=== PATIENT | female | born 1945 | race Caucasian/White ===

== ENCOUNTER → 2020-04-24 | Outpatient (CLI) | payer MEDICARE, BC ==
--- NOTE | 2020-04-24 09:51 | P.GSHP ---
History of Present Illness H&P Date: 04/24/20 Chief Complaint: abnormal left breast mammogram Patti is a 75 year old white female seen in consultation for Dr. Alondra Restrepo regarding a mammographic abnormality of her left breast at 3:00. She does not feel anything in her breast. No nipple discharge or skin changes. No pain in her breast. Her last mammogram prior to this was two years prior. The most recent mammogram was on 03-24-2020, with additional views on 04-17-2020. The patient's mammogram revealed loosely grouped coarse heterogeneous calcifications in close proximity to coursing macrocalcification in the upper outer quadrant of the left breast middle depth. This most likely reflective of a calcifying fibroadenoma however additional imaging was requested. On the additional imaging she was noted to have developing course hemorrhoid Silverio calcifications in the outer 3 o'clock position of the left breast and his this area for which biopsy is recommended. Patient has had breast surgery in the past. She has no history of any recent trauma or infection in the breast. She did have mastitis after her pregnancies. Family history: Negative Hormonal history: Menarche: 11 1 miscarriage, breast feed no, first child born at 17 Menopause: late 50's BCP:< 1 year hormones: < 1 year Surgical history: 1. Varicose veins 2. Superficial nodule removed from scalp 3. two liver biopsies in past Medical History: 1. 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 cardiac palpitations takes Coumadin Social History: smoke: none alcohol: none drugs: none - Constitutional Constitutional: Denies chills, Denies fever - EENT Eyes: denies blurred vision, denies pain Ears, nose, mouth and throat: Denies headache, Denies sore throat - Breasts Breasts: bilateral: as per HPI - Cardiovascular Comment: palpitations Cardiovascular: Denies chest pain, Denies shortness of breath - Respiratory Respiratory: Denies cough, Denies 7 - Gastrointestinal Gastrointestinal: Denies abdominal pain, Denies diarrhea, Denies nausea, Denies vomiting - Genitourinary (Female) Genitourinary: Denies dysuria, Denies hematuria - Menstruation Menstruation: Reports postmenopausal - Musculoskeletal Musculoskeletal: Denies myalgias - Integumentary Integumentary: Denies pruritus, Denies rash - Neurological Neurological: Denies numbness, Denies weakness - Psychiatric Psychiatric: Denies anxiety, Denies depression - Endocrine Endocrine: Reports weight change, Denies fatigue - Hematologic/Lymphatic Comment: Patient takes Coumadin - Allergic/Immunologic Allergic/Immunologic: Reports as per HPI Medications and Allergies Home Medications Medication Instructions Recorded Confirmed Type Multivitamin [Multivitamins Adult 1 each PO DAILY 04/24/20 04/24/20 History Gummies] Ursodiol 300 mg PO DAILY 04/24/20 04/24/20 History Warfarin [Coumadin] 1 mg PO DAILY 04/24/20 04/24/20 History amLODIPine [Norvasc] 5 mg PO DAILY 04/24/20 04/24/20 History azaTHIOprine [Imuran] 50 mg PO DAILY 04/24/20 04/24/20 History Allergies Allergy/AdvReac Type Severity Reaction Status Date / Time Penicillins Allergy Rash/Hives Unverified 04/24/20 09:21 Sulfa (Sulfonamide Allergy Rash/Hives Unverified 04/24/20 09:21 Antibiotics) Surgical - Exam BMI 32.8 - General well developed, well nourished, no distress - Eyes normal ocular movement - ENT no hearing loss, no congestion - Neck no masses, trachea midline - Respiratory normal respiratory effort, clear to auscultation - Cardiovascular Rhythm: regular Heart Sounds: normal: S1, S2 - Abdomen Abdomen: soft, non tender, no guarding, no rigid, no rebound - Integumentary normal turgor - Neurologic no disoriented, no combative - Musculoskeletal normal gait, normal posture - Psychiatric oriented to time, oriented to person, oriented to place, speech is normal, memory intact breast exam: BRA: 42DD inspection: bilateral grade 2/3 ptosis palpation: right breast: Multi-positional exam fibrocystic changes, prominent inframammary ridge with no dominant masses or nodules of concern Right axilla: No adenopathy of concern Left breast: Multi-positional exam no dominant masses or nodules of concern, fibrocystic changes, particularly tension at the 3 o'clock position does not reveal any discrete dominant mass or nodule Left axilla: No adenopathy of concern Results Review of mammogram revealing calcifications in the left breast for which biopsy is recommended Assessment and Plan Assessment: Impression: 1. 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 cardiac palpitations takes Coumadin 3. Mammographic abnormality left breast Plan: 1. Patient is going to stop Coumadin as per cardiology and have PT/INR morning of stereotactic core biopsy 2. Stereotactic core biopsy left breast Risk and benefits of procedure discussed with the patient. These include but are not limited to bleeding, infection, reaction to the anesthetic. There is a possibility that the area targeted may not be adequately sampled. Alternatives such as open biopsy of watchful waiting not recommended. She understands risks and wishes to proceed. Cc: Dr. Alondra Restrepo encounter 45 minutes, > 50% of time in planning and counseling
[2020-04-24 10:45] VITALS: BP 120/77; PULSE 61; RESP 18; TEMP 98.1
== END | disposition home or self-care (01) ==
LOC: WWCWWP 09:07
PROVIDERS: ATTEND Surgery
DX: Z53.9 Procedure and treatment not carried out, unspecified reason (principal)

== ENCOUNTER → 2020-04-30 | Day surgery (SDC) | payer MEDICARE, BC ==
[2020-04-30 07:59] LABS: Prothrombin Time 10.7 sec (9.0-12.0)
--- NOTE | 2020-04-30 08:53 | P.PCN ---
Date of Procedure: 04/30/20 Preoperative Diagnosis: Mammographic abnormality left breast/calcifications of concern at 3 o'clock position Postoperative Diagnosis: Same Procedure(s) Performed: Left breast stereotactic core biopsy Anesthesia: local Surgeon: Nano Castro Estimated Blood Loss (ml): 0 Pathology: other (Breast tissue/concordant with mammographic abnormality) Condition: stable Disposition: same day Indications for Procedure: Developing coarse heterogeneous calcifications 3 o'clock position left breast Operative Findings: Microcalcifications noted in specimen Description of Procedure: The patient is a 75-year-old white female who on a mammogram was noted to have developing coarse heterogenic calcifications 3 o'clock position of the left breast. She was recommended to undergo a stereotactic core biopsy. Alternatives such as watchful waiting or open biopsy was not recommended. Risks and benefits of the procedure were discussed with the patient. The patient was taken to the stereotactic core biopsy wound. She was pos itioned prone on the stereotactic table. A inner tube tuber machine operator film was obtained. The area of concern was identified. The lesion was targeted. A lateral to medial approach was utilized. The breast was prepped using Betadine. 20 mL of 1% lidocaine were used to anesthetize the area of concern. A 9-gauge vacuum- assisted core rotating biopsy needle was driven to the correct coordinates. The needle was fired. Post film was obtained. The needle was noted to be in the correct location. A core biopsy samples were obtained from the 3 to 9 o'clock position obtaining 2 samples at 6:00. Radiograph the specimen revealed the area of concern had been sampled with calcifications in the specimen. A secure marked top. Clip was placed and noted to be in the correct location. The patient tolerated the procedure in stable condition. She will follow-up Dr. Funes next week. The specimen was sent to pathology. The specimen was felt to be concordant with radiographic findings.
[2020-04-30 09:06] VITALS: BP 136/84; PULSE 82; RESP 16; TEMP 97.7
--- NOTE | 2020-04-30 10:06 | MM ---
EXAMINATION TYPE: MG stereo VAD BX LT DATE OF EXAM: 04/30/2020 COMPARISON: Prior mammograms from outside institution 04/09/2018, 04/17/2020 CLINICAL HISTORY: Abnormal mammogram TECHNIQUE: Stereotactic guided core biopsy of left breast. FINDINGS: The procedure of stereotactic guided core biopsy was explained to the patient. Benefits, alternatives, and risks were discussed. An informed consent was then obtained. The shortness pathway for biopsy was chosen. Shortness pathway was lateral to medial approach. I performed the localization, then surgeon, Dr. Marin Mari performed the remainder of the procedure. A vacuum assisted biopsy gun was used to obtain multiple core samples. The patient tolerated the procedure well without any immediate complication. The patient was kept in the radiology department for short stay after the procedure and then discharged home in stable condition. Targeted calcifications are identified in specimen mammogram. Post biopsy mammogram shows the clip to appear in satisfactory position relative to the targeted area of concern on the preprocedure images. IMPRESSION: SUCCESSFUL, UNCOMPLICATED STEREOTACTIC GUIDED CORE BIOPSY OF AREA OF CONCERN IN THE BREAST, FULL PATHOLOGY RESULTS TO FOLLOW. Pathology Results: Benign LEFT BREAST LESION, NEEDLE CORE BIOPSY: Fibrocystic spectrum changes with fibroadenoma and prominent intraductal and parenchymal calcifications. Recommendation Follow up mammogram of the left breast in 6 months. ROBERTO
== END ==
LOC: RADMAMWWP 07:12
PROVIDERS: ATTEND Surgery
DX: D24.2 Benign neoplasm of left breast (principal); N60.12 Diffuse cystic mastopathy of left breast
CPT/HCPCS: 88305; 85610; 19081; 36415; A4648; J2001

== ENCOUNTER → 2021-03-31 | Outpatient (CLI) | payer MEDICARE, BC ==
--- NOTE | 2021-04-01 14:26 | MM ---
Reason for exam: additional evaluation requested from prior study. Last mammogram was performed 11 months ago. History: Patient is postmenopausal. Benign MG stereo VAD BX LT of the left breast, April 30, 2020. Physical Findings: Nurse did not find any significant physical abnormalities on exam. MG 3D Diag Mammo W/Cad GUNNAR Bilateral CC and MLO view(s) were taken. Prior study comparison: April 30, 2020, mammogram. April 09, 2018, mammogram. There are scattered fibroglandular densities. Previous mammotome biopsy in the left breast. These results were verbally communicated with the patient and result sheet given to the patient on 03/31/21. ASSESSMENT: Benign, BI-RAD 2 RECOMMENDATION: Routine screening mammogram of both breasts in 1 year.
== END | disposition home or self-care (01) ==
LOC: RADMAMWWP 09:18
PROVIDERS: ATTEND Surgery
DX: N64.89 Other specified disorders of breast (principal); Z78.0 Asymptomatic menopausal state
CPT/HCPCS: 77066; G0279; 77062

== ENCOUNTER → 2021-05-05 | Outpatient (CLI) | payer MEDICARE, BC ==
--- NOTE | 2021-05-05 14:15 | P.PN ---
Subjective Progress Note Date: 05/05/21 Principal diagnosis: fibrocystic breast disease Patti is a 76 year old white female seen on April [address] Alondra Restrepo regarding a mammographic abnormality of her left breast at 3:00. She did not feel anything in her breast. No nipple discharge or skin changes. No pain in her breast. The patient's mammogram revealed loosely grouped coarse heterogeneous calcifications in close proximity to coursing macrocalcification in the upper outer quadrant of the left breast middle depth. This most likely reflective of a calcifying fibroadenoma however additional imaging was requested. On the additional imaging she was noted to have developing calcifications in the outer 3 o'clock position of the left breast and his this area for which biopsy is recommended. She underwent a left breast stero biopsy on 04-20-20 which was benign. She now had a bilateral mammogram on 03-31-21 which was benign BIRAD 2. She is not complaining of any new lumps masses or nodules in her breast. She is not complaining of any nipple discharge or skin changes for which she is concerned. Patient has had breast surgery in the past. She has no history of any recent trauma or infection in the breast. She did have mastitis after her pregnancies. Family history: Negative Hormonal history: Menarche: 11 1 miscarriage, breast feed no, first child born at 17 Menopause: late 50's BCP:< 1 year hormones: < 1 year Surgical history: 1. Varicose veins 2. Superficial nodule removed from scalp 3. two liver biopsies in past Medical History: 1. 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 cardiac palpitations takes Coumadin Social History: smoke: none alcohol: none drugs: none - Constitutional Constitutional: Denies chills, Denies fever - EENT Eyes: denies blurred vision, denies pain Ears, nose, mouth and throat: Denies headache, Denies sore throat - Breasts Breasts: bilateral: as per HPI - Cardiovascular Comment: palpitations Cardiovascular: Denies chest pain, Denies shortness of breath - Respiratory Respiratory: Denies cough - Gastrointestinal Gastrointestinal: Denies abdominal pain, Denies diarrhea, Denies nausea, Denies vomiting - Genitourinary (Female) Genitourinary: Denies dysuria, Denies hematuria - Menstruation Menstruation: Reports postmenopausal - Musculoskeletal Musculoskeletal: Denies myalgias - Integumentary Integumentary: Denies pruritus, Denies rash - Neurological Neurological: Denies numbness, Denies weakness - Psychiatric Psychiatric: Denies anxiety, Denies depression - Endocrine Endocrine: Reports weight change, Denies fatigue - Hematologic/Lymphatic Comment: Patient takes Coumadin - Allergic/Immunologic Allergic/Immunologic: Reports as per HPI Objective - Exam BMI 31.8 - Constitutional General appearance: Present: average body habitus, cooperative - EENT Eyes: Present: EOMI ENT: Present: hearing grossly normal - Neck Neck: Present: normal ROM - Respiratory Respiratory: bilateral: CTA - Cardiovascular Rhythm: regular Heart sounds: normal: S1, S2 - Gastrointestinal General gastrointestinal: Present: soft - Integumentary Integumentary: Present: normal turgor - Musculoskeletal Musculoskeletal: Present: gait normal - Psychiatric Psychiatric: Present: A&O x's 3, appropriate affect, intact judgment & insight - Additional findings Additional findings: Breast exam: BRA: 40D inspection: bilateral grade 3 ptosis, bilateral chest wall telangiectasias non- worrisome palpation: Right breast: Multi-positional exam fibrocystic changes, no dominant masses or nodules of concern Right axilla: No adenopathy of concern Left breast: Multi-positional exam fibrocystic changes no dominant masses or nodules of concern Left axilla: No adenopathy of concern Assessment and Plan Assessment: Impression: 1. 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 cardiac palpitations takes Coumadin 3. Fibrocystic breast changes Plan: 1. Bilateral mammogram in 1 year with physician exam at that time CC: DR. Restrepo
[2021-05-05 14:19] VITALS: BP 165/83; PULSE 69; RESP 18; TEMP 97.6
== END | disposition home or self-care (01) ==
LOC: WWCWWP 13:44
PROVIDERS: ATTEND Surgery
DX: Z53.9 Procedure and treatment not carried out, unspecified reason (principal)

== ENCOUNTER → 2022-04-04 | Outpatient (CLI) | payer MEDICARE, BC ==
--- NOTE | 2022-04-05 09:29 | MM ---
Reason for Exam: Screening (asymptomatic). Last screening mammogram was performed 12 month(s) ago. Patient History: Menarche at age 11. First Full-Term at age 16. Postmenopausal. 04/30/2020, Benign Core Biopsy on the left side. Risk Values: Ritu 5 year model risk: 1.5%. NCI Lifetime model risk: 2.6%. Prior Study Comparison: 04/09/2018 Screening Mammogram, Unknown. 04/30/2020 Screening Mammogram, Unknown. 03/31/2021 Bilateral Diagnostic Mammogram, [facility]. Tissue Density: The breast tissue is heterogeneously dense. This may lower the sensitivity of mammography. Findings: Analyzed By CAD. There is no suspicious group of microcalcifications or new suspicious mass in either breast. Surgical clips noted on the left. There are benign appearing calcifications. There is a 6 mm nodule in the upper outer aspect of the left breast. Appears well-circumscribed. Overall Assessment: Incomplete: need additional imaging evaluation, BI-RAD 0 Management: Special View Mammogram of the left breast. A clinical breast exam by your physician is recommended on an annual basis and results should be correlated with mammographic findings. Electronically signed and approved by: Cleveland Cleaning M.D. Radiologis
== END | disposition home or self-care (01) ==
LOC: RADMAMWWP 09:16
PROVIDERS: ATTEND Surgery
DX: Z12.31 Encounter for screening mammogram for malignant neoplasm of breast (principal)
CPT/HCPCS: 77063; 77067

== ENCOUNTER → 2022-04-08 | Outpatient (CLI) | payer MEDICARE, BC ==
--- NOTE | 2022-04-08 09:05 | MM ---
Reason for Exam: Additional evaluation requested from abnormal screening. Last screening mammogram was performed less than 1 month ago. Patient History: Menarche at age 11. First Full-Term at age 16. Postmenopausal. 04/30/2020, Benign Core Biopsy on the left side. Risk Values: Ritu 5 year model risk: 1.5%. NCI Lifetime model risk: 2.6%. Prior Study Comparison: 04/30/2020 Screening Mammogram, Unknown. 03/31/2021 Bilateral Diagnostic Mammogram, [facility]. 04/04/2022 Bilateral MG 3D screening mammo w/cad, [facility]. Tissue Density: Left: The breast tissue is heterogeneously dense. This may lower the sensitivity of mammography. Findings: Analyzed By CAD. Mammogram Persistent nodule upper outer left breast 5 cm from the nipple, and measuring 5 mm in size. Ultrasound is recommended.. Technique: Method: Targeted. Findings: No solid or cystic nodule identified. Overall Assessment: Probably benign, BI-RAD 3 Assessment: MG 3D work up w/cad LT - Left: Incomplete: need additional imaging evaluation, BI-RAD 0. US breast workup limited LT - Left: Probably benign, BI-RAD 3. Management: Diagnostic Mammogram of the left breast in 6 months. A clinical breast exam by your physician is recommended on an annual basis and results should be correlated with mammographic findings. Results were given to the patient verbally at the time of exam. Electronically signed and approved by: Horacio Magana M.D. Radiologis
== END | disposition home or self-care (01) ==
LOC: RADMAMWWP 08:13
PROVIDERS: ATTEND Family Medicine
DX: R92.8 Other abnormal and inconclusive findings on diagnostic imaging of breast (principal)
CPT/HCPCS: 77065; 76642; G0279; 77061

== ENCOUNTER → 2022-04-08 | Outpatient (CLI) | payer MEDICARE, BC ==
[2022-04-08 09:53] VITALS: BP 139/80; PULSE 61; RESP 17; TEMP 97.8
--- NOTE | 2022-04-08 10:48 | P.PN ---
Subjective Progress Note Date: 04/08/22 Principal diagnosis: Fibrocystic breast changes fibrocystic breast disease Patti is a 76 year old white female seen on April [address] Alondra Restrepo regarding a mammographic abnormality of her left breast at 3:00. She did not feel anything in her breast. No nipple discharge or skin changes. No pain in her breast. The patient's mammogram revealed loosely grouped coarse heterogeneous calcifications in close proximity to coursing macrocalcification in the upper outer quadrant of the left breast middle depth. This most likely reflective of a calcifying fibroadenoma however additional imaging was requested. On the additional imaging she was noted to have developing calcifications in the outer 3 o'clock position of the left breast and his this area for which biopsy is recommended. She underwent a left breast stero biopsy on 04-20-20 which was benign. She now had a bilateral mammogram on 03-31-21 which was benign BIRAD 2. She is not complaining of any new lumps masses or nodules in her breast. She is not complaining of any nipple discharge or skin changes for which she is concerned. Patient has had breast surgery in the past. She has no history of any recent trauma or infection in the breast. She did have mastitis after her pregnancies. 04-08-22 At this time the patient is not complaining of any new lumps masses or nodules of concern in either breast. She has no nipple discharge or skin changes for which she is concerned about. She underwent a bilateral mammogram in which revealed a 6 mm nodule in the upper aspect of the left breast. Additional mammogram as well as ultrasound were performed of this area. These were performed and [id number]. On the mammogram there was a persistent nodule in the upper outer quadrant of the left breast measuring 5 mm in size. An ultrasound was performed of this area which did not reveal any solid or cystic lesions. Recommendation for repeat left breast mammogram in 6 months was made. Mammogram and ultrasound personally reviewed. Family history: Negative Hormonal history: Menarche: 11 1 miscarriage, breast feed no, first child born at 17 Menopause: late 50's BCP:< 1 year hormones: < 1 year Surgical history: 1. Varicose veins 2. Superficial nodule removed from scalp 3. two liver biopsies in past Medical History: 1. 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 a fib takes Coumadin Social History: smoke: none alcohol: none drugs: none - Constitutional Constitutional: Denies chills, Denies fever - EENT Eyes: denies blurred vision, denies pain Ears, nose, mouth and throat: Denies headache, Denies sore throat - Breasts Breasts: bilateral: as per HPI - Cardiovascular Comment: palpitations Cardiovascular: Denies chest pain, Denies shortness of breath - Respiratory Respiratory: Denies cough - Gastrointestinal Gastrointestinal: Denies abdominal pain, Denies diarrhea, Denies nausea, Denies vomiting - Genitourinary (Female) Genitourinary: Denies dysuria, Denies hematuria - Menstruation Menstruation: Reports postmenopausal - Musculoskeletal Musculoskeletal: Denies myalgias - Integumentary Integumentary: Denies pruritus, Denies rash - Neurological Neurological: Denies numbness, Denies weakness - Psychiatric Psychiatric: Denies anxiety, Denies depression - Endocrine Endocrine: Reports weight change, Denies fatigue - Hematologic/Lymphatic Comment: Patient takes Coumadin - Allergic/Immunologic Allergic/Immunologic: Reports as per HPI 04-08-22 Objective - Vital Signs Vital signs: Vital Signs Temp 97.8 F 04/08/22 09:51 Pulse 61 04/08/22 09:51 Resp 17 04/08/22 09:51 BP 139/80 04/08/22 09:51 Pulse Ox 95 04/08/22 09:51 FiO2 Intake & Output 04/07/22 04/08/22 04/08/22 18:59 06:59 18:59 Weight 83.915 kg - Exam BMI: 30.8 - Constitutional General appearance: Present: cooperative - EENT Eyes: Present: EOMI ENT: Present: hearing grossly normal - Neck Neck: Present: normal ROM - Respiratory Respiratory: bilateral: CTA - Cardiovascular Rhythm: regular Heart sounds: normal: S1, S2 - Gastrointestinal General gastrointestinal: Present: soft - Integumentary Integumentary: Present: normal turgor - Musculoskeletal Musculoskeletal: Present: gait normal - Psychiatric Psychiatric: Present: A&O x's 3, appropriate affect, intact judgment & insight - Additional findings Additional findings: Breast Exam: BRA: 40DD Inspection: Bilateral grade 3 ptosis Palpation: Right breast: Multiple positional exam fibrocystic changes no dominant masses or nodules of concern Right axilla: No adenopathy of concern Left breast: Positional exam fibrocystic changes no dominant masses or nodules of concern Left axilla: No adenopathy of concern Assessment and Plan Assessment: Impression: Fibrocystic breast changes Radiographic change left breast nodule upper outer quadrant region felt to be most likely benign Plan: Left breast mammogram in 6 months with physician exam at that time Patient follow up sooner any questions or concerns Cc: Dr. Posey
== END ==
LOC: WWCWWP 08:15
PROVIDERS: ATTEND Surgery
DX: N60.12 Diffuse cystic mastopathy of left breast (principal); I48.91 Unspecified atrial fibrillation; Z79.01 Long term (current) use of anticoagulants

== ENCOUNTER → 2023-04-13 | Outpatient (CLI) | payer MEDICARE, BC ==
[2023-04-13 15:50] VITALS: BP 152/85; PULSE 77; RESP 17; TEMP 97.9
== END ==
LOC: WWCWWP 03-09 10:43
PROVIDERS: ATTEND Surgery
DX: R92.8 Other abnormal and inconclusive findings on diagnostic imaging of breast (principal); Z88.0 Allergy status to penicillin; Z88.2 Allergy status to sulfonamides

== ENCOUNTER → 2023-04-13 | Outpatient (CLI) | payer MEDICARE, BC ==
--- NOTE | 2023-04-13 15:14 | MM ---
Reason for Exam: Additional evaluation requested from abnormal screening. Last screening mammogram was performed 12 month(s) ago. Patient History: Menarche at age 11. First Full-Term at age 16. Postmenopausal. 04/30/2020, Benign Core Biopsy on the left side. Risk Values: Ritu 5 year model risk: 1.4%. NCI Lifetime model risk: 2.4%. Prior Study Comparison: 03/31/2021 Bilateral Diagnostic Mammogram, [facility]. 04/04/2022 Bilateral MG 3D screening mammo w/cad, [facility]. 04/08/2022 Left MG 3D work up w/cad , [facility]. Tissue Density: There are scattered fibroglandular densities. Findings: Analyzed By CAD. No suspicious grouped calcifications within either breast. Biopsy clip redemonstrated within the left breast. Benign-appearing calcifications left breast. Marginal increase in size of 6 millimeter ovoid nodule within the upper outer left breast at anterior depth. No new suspicious masses within either breast. Overall Assessment: Incomplete: need additional imaging evaluation, BI-RAD 0 Management: Diagnostic Breast Ultrasound of the left breast. A clinical breast exam by your physician is recommended on an annual basis and results should be correlated with mammographic findings. This exam should not preclude additional follow-up of suspicious palpable abnormalities. Results were given to the patient verbally at the time of exam. Note on Ritu scores and lifetime risk: 1. A Ritu score greater than 3% is considered moderate risk. If this is the case, consider specialist referral to assess eligibility for a risk reducing agent. If overall lifetime risk for the development of breast cancer is 20% or higher, the patient may qualify for future screening with alternating mammogram and breast MRI. Electronically signed and approved by: Sha Dias D.O.
--- NOTE | 2023-04-13 15:39 | USB ---
Reason for Exam: Follow-up at short interval from prior study. Patient History: Menarche at age 11. First Full-Term at age 16. Postmenopausal. 04/30/2020, Benign Core Biopsy on the left side. Risk Values: Ritu 5 year model risk: 1.4%. NCI Lifetime model risk: 2.4%. Technique: Method: Targeted. Prior Study Comparison: 03/31/2021 Bilateral Diagnostic Mammogram, [facility]. 04/04/2022 Bilateral MG 3D screening mammo w/cad, [facility]. 04/08/2022 Left MG 3D work up w/cad , [facility]. Findings: The upper outer quadrant of the left breast, the axilla of the left breast and the retroareolar of the left breast were scanned. Targeted ultrasound left breast from 12-3 o'clock was performed with additional evaluation of the nipple and axilla. There is redemonstration of a homogeneous hyperechoic mass within the left breast at 3:00 7 cm in the nipple. This is marginally increased in size measuring 0.4 x 0.3 x 0.5 cm without internal color flow. No posterior acoustic features. This is relatively circumscribed margins with parallel orientation. Previously measured up to 0.3 cm. Overall Assessment: Probably benign, BI-RAD 3 Management: Diagnostic Breast Ultrasound of the left breast in 6 months. A clinical breast exam by your physician is recommended on an annual basis and results should be correlated with mammographic findings. This exam should not preclude additional follow-up of suspicious palpable abnormalities. Results were given to the patient verbally at the time of exam. Electronically signed and approved by: Sha Dias D.O.
--- NOTE | 2023-04-13 16:11 | P.PN ---
Subjective Progress Note Date: 04/13/23 Principal diagnosis: fibrocystic breast changes Fibrocystic breast changes fibrocystic breast disease Patti is a 76 year old white female seen on April [address] Alondra Restrepo regarding a mammographic abnormality of her left breast at 3:00. She did not feel anything in her breast. No nipple discharge or skin changes. No pain in her breast. The patient's mammogram revealed loosely grouped coarse heterogeneous calcifications in close proximity to coursing macrocalcification in the upper outer quadrant of the left breast middle depth. This most likely reflective of a calcifying fibroadenoma however additional imaging was requested. On the additional imaging she was noted to have developing calcifications in the outer 3 o'clock position of the left breast and his this area for which biopsy is recommended. She underwent a left breast stero biopsy on 04-20-20 which was benign. She now had a bilateral mammogram on 03-31-21 which was benign BIRAD 2. She is not complaining of any new lumps masses or nodules in her breast. She is not complaining of any nipple discharge or skin changes for which she is concerned. Patient has had breast surgery in the past. She has no history of any recent trauma or infection in the breast. She did have mastitis after her pregnancies. 04-08-22 At this time the patient is not complaining of any new lumps masses or nodules of concern in either breast. She has no nipple discharge or skin changes for which she is concerned about. She underwent a bilateral mammogram in which revealed a 6 mm nodule in the upper aspect of the left breast. Additional mammogram as well as ultrasound were performed of this area. These were performed and 620 . On the mammogram there was a persistent nodule in the upper outer quadrant of the left breast measuring 5 mm in size. An ultrasound was performed of this area which did not reveal any solid or cystic lesions. Recommendation for repeat left breast mammogram in 6 months was made. Mammogram and ultrasound personally reviewed. 04-13-23 Bilateral mammogram and left breast ultrasound done 04-13-23 repeat left breast ultrasound in 6 months. She is not complaining of any new lumps masses or nodules in either breast. Family history: Negative Hormonal history: Menarche: 11 1 miscarriage, breast feed no, first child born at 17 Menopause: late 50's BCP:< 1 year hormones: < 1 year Surgical history: 1. Varicose veins 2. Superficial nodule removed from scalp 3. two liver biopsies in past Medical History: 1. 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 a fib takes Coumadin Social History: smoke: none alcohol: none drugs: none - Constitutional Constitutional: Denies chills, Denies fever - EENT Eyes: denies blurred vision, denies pain Ears, nose, mouth and throat: Denies headache, Denies sore throat - Breasts Breasts: bilateral: as per HPI - Cardiovascular Comment: palpitations Cardiovascular: Denies chest pain, Denies shortness of breath - Respiratory Respiratory: Denies cough - Gastrointestinal Gastrointestinal: Denies abdominal pain, Denies diarrhea, Denies nausea, Denies vomiting - Genitourinary (Female) Genitourinary: Denies dysuria, Denies hematuria - Menstruation Menstruation: Reports postmenopausal - Musculoskeletal Musculoskeletal: Denies myalgias - Integumentary Integumentary: Denies pruritus, Denies rash - Neurological Neurological: Denies numbness, Denies weakness - Psychiatric Psychiatric: Denies anxiety, Denies depression - Endocrine Endocrine: Reports weight change, Denies fatigue - Hematologic/Lymphatic Comment: Patient takes Coumadin - Allergic/Immunologic Allergic/Immunologic: Reports as per HPI Objective - Constitutional General appearance: Present: cooperative - EENT Eyes: Present: EOMI ENT: Present: hearing grossly normal - Neck Neck: Present: normal ROM - Respiratory Respiratory: bilateral: CTA - Cardiovascular Heart sounds: normal: S1, S2 - Gastrointestinal General gastrointestinal: Present: soft - Integumentary Integumentary: Present: normal turgor - Musculoskeletal Musculoskeletal: Present: gait normal - Psychiatric Psychiatric: Present: A&O x's 3, appropriate affect, intact judgment & insight - Additional findings Additional findings: Breast Exam: BRA: 40DD Inspection: Bilateral grade 3 ptosis Palpation: Right breast: Multiple positional exam fibrocystic changes no dominant masses or nodules of concern Right axilla: No adenopathy of concern Left breast: Positional exam fibrocystic changes no dominant masses or nodules of concern Left axilla: No adenopathy of concern Assessment and Plan Assessment: Impression: Fibrocystic breast changes Radiographic change left breast nodule upper outer quadrant region felt to be most likely benign and slightly increased in size ultrasound and mammogram 04-13-23 BIRAD 3 repeat left ultrasound in 6 months Plan: Left breast ultrasound in 6 months with physician exam at that time (patient is going to [place] and will get it done when she returns, February 2024) Patient follow up sooner any questions or concerns bilateral mammogram in 1 year Cc: Dr. Posey
== END | disposition home or self-care (01) ==
LOC: RADMAMWWP 03-09 10:46
PROVIDERS: ATTEND Surgery
DX: N60.19 Diffuse cystic mastopathy of unspecified breast (principal); N63.21 Unspecified lump in the left breast, upper outer quadrant; Z78.0 Asymptomatic menopausal state
CPT/HCPCS: 77066

== ENCOUNTER → 2024-03-04 | Outpatient (CLI) | payer MEDICARE, BC ==
--- NOTE | 2024-03-04 10:32 | USB ---
Reason for Exam: Follow-up at short interval from prior study. Patient History: Menarche at age 11. First Full-Term at age 16. Postmenopausal. 04/30/2020, Benign Core Biopsy on the left side. Risk Values: Ritu 5 year model risk: 1.4%. NCI Lifetime model risk: 2.2%. Technique: Method: Targeted. Prior Study Comparison: 04/04/2022 Bilateral MG 3D screening mammo w/cad, [facility]. 04/08/2022 Left MG 3D work up w/cad LT, [facility]. 04/13/2023 Bilateral MG diagnostic mammo w CAD GUNNAR, [facility]. Findings: The upper outer quadrant of the left breast, the axilla of the left breast and the retroareolar of the left breast were scanned. At the 3:00 position within the superficial soft tissues is a ill-defined hyper Choletec area measuring 0.4 x 0.3 x 0.4 cm. This is been present previously and appears unchanged. This is 7 cm. On the current exam there is a new hypoechoic area with mild lobation measuring 0.7 x 0.4 x 0.5 cm. This is at the 1:00 position 3 cm from the nipple. This is new on Ultrasound but may correlate with the oval density identified by mammogram. Ultrasound-guided core biopsy is recommended. Overall Assessment: Incomplete: need additional imaging evaluation, BI-RAD 0 Management: Diagnostic Mammogram of the left breast. A clinical breast exam by your physician is recommended on an annual basis and results should be correlated with mammographic findings. This exam should not preclude additional follow-up of suspicious palpable abnormalities. Results were given to the patient verbally at the time of exam. Electronically signed and approved by: Rayshawn Marcelo D.O. Radiologis
--- NOTE | 2024-03-04 11:45 | MM ---
Reason for Exam: Clinical finding. Last screening mammogram was performed 11 month(s) ago. Patient History: Menarche at age 11. First Full-Term at age 16. Postmenopausal. 04/30/2020, Benign Core Biopsy on the left side. Risk Values: Ritu 5 year model risk: 1.4%. NCI Lifetime model risk: 2.2%. Prior Study Comparison: 04/04/2022 Bilateral MG 3D screening mammo w/cad, [facility]. 04/08/2022 Left MG 3D work up w/cad LT, [facility]. 04/13/2023 Bilateral MG diagnostic mammo w CAD GUNNAR, [facility]. Tissue Density: Left: There are scattered areas of fibroglandular density. Findings: Analyzed By CAD. Pattern appears stable. There is an oval circumscribed density upper outer anterior left breast appears stable. Postbiopsy surgical clip is evident within the left breast. Exam is compared with the ultrasound. Ultrasound finding could correlate with the stable appearing mammographic oval density. Correlation post ultrasound-guided biopsy is recommended. Overall Assessment: Suspicious, BI-RAD 4 Management: Ultrasound Core Biopsy of the left breast. A negative mammogram report should not preclude additional follow up of suspicious palpable abnormalities. Patient should continue monthly self breast exam. A clinical breast exam by your physician is recommended on an annual basis and results should be correlated with mammographic findings. Note on Ritu scores and lifetime risk: 1. A Ritu score greater than 3% is considered moderate risk. If this is the case, consider specialist referral to assess eligibility for a risk reducing agent. 2. If overall lifetime risk for the development of breast cancer is 20% or higher, the patient may qualify for future screening with alternating mammogram and breast MRI. Electronically signed and approved by: Rayshawn Marcelo D.O. Radiologis
== END | disposition home or self-care (01) ==
LOC: RADUSWWP 09:15
PROVIDERS: ATTEND Surgery
DX: R92.322 Mammographic fibroglandular density, left breast (principal); Z78.0 Asymptomatic menopausal state
CPT/HCPCS: 77065; 76642; G0279; 77061

== ENCOUNTER → 2024-03-12 | Day surgery (SDC) | payer MEDICARE, BC ==
--- NOTE | 2024-03-18 13:44 | MM ---
Reason for Exam: Post Procedure Mammogram. Last screening mammogram was performed 11 month(s) ago. Patient History: Menarche at age 11. First Full-Term at age 16. Postmenopausal. 04/30/2020, Benign Core Biopsy on the left side. Risk Values: Ritu 5 year model risk: 1.4%. NCI Lifetime model risk: 2.2%. Prior Study Comparison: 04/09/2018 Screening Mammogram, Unknown. 04/30/2020 Screening Mammogram, Unknown. 03/31/2021 Bilateral Diagnostic Mammogram, [facility]. 04/04/2022 Bilateral MG 3D screening mammo w/cad, [facility]. 04/08/2022 Left MG 3D work up w/cad LT, [facility]. 04/13/2023 Bilateral MG diagnostic mammo w CAD GUNNAR, [facility]. 03/04/2024 Left MG 3D diag mammo w/cad LT, [facility]. Tissue Density: Left: There are scattered areas of fibroglandular density. Pathology Description: Location: 1 o'clock. Marker Left Behind. Needle Type: Mammotome Cores: 4 Gauge: 13 Initial scanning shows the 7 mm lesion, suspected mammographic correlate at the 1:00 position in the left breast. This is targeted for biopsy. The procedure of ultrasound guided core biopsy was explained to the patient. Benefits, alternatives, and risks were discussed. An informed consent was then obtained. The patient was placed in supine positioning for imaging and for the procedure. The overlying skin was prepped and draped in usual sterile fashion. Lidocaine was used as anesthetic into the skin and subcutaneous tissue up to area of concern in the 1:00 left breast. Under ultrasound guidance, a 13-gauge vacuum-assisted mammotome Elite biopsy gun was used to obtain 4 core samples. Following this, a butterfly clip was left at the site of biopsy. The patient tolerated the procedure well without any immediate complication. The patient was kept in the radiology department for short stay after the procedure and then discharged home in stable condition. Postprocedure mammogram: The patient was transferred to mammography for physician ordered post procedure mammogram for clip placement verification. Post procedure mammogram shows clip at the site of mammographic nodularity. IMPRESSION: Successful, uncomplicated ultrasound guided core biopsy of area of concern in the 1:00 left breast, mammographic correlate. Full pathology results to follow. Pathology Results: Result: Benign, Hemangioma - venous. LEFT BREAST, ONE O'CLOCK, ULTRASOUND GUIDED NEEDLE CORE BIOPSY: Hemangioma. Overall Assessment: Benign Assessment: MG diagnostic mammo LT wo CAD. - Left: Negative, BI-RAD 1. Management: Diagnostic Mammogram of the left breast in 6 months. Electronically signed and approved by: Tim Luna M.D. Radiologist
== END ==
LOC: RADUSWWP 12:21
PROVIDERS: ATTEND Surgery
DX: D18.09 Hemangioma of other sites (principal)
CPT/HCPCS: 88305; 77065; 19083; A4648

== ENCOUNTER → 2024-03-28 | Outpatient (CLI) | payer MEDICARE, BC ==
--- NOTE | 2024-03-28 13:14 | P.PN ---
Subjective Progress Note Date: 03/28/24 Principal diagnosis: hemanganioma of the breast fibrocystic breast disease 03-28-24 Patti is an 78 year old female with a complaint of an abnormal left breast mammogram and ultrasound. Patti is an 78-year-old female who underwent a bilateral mammogram approximately 1 year ago on 04-13-2023. She has been followed for radiographic abnormalities in the past. She most recently underwent a left breast ultrasound and mammogram on 03-04-2024. This revealed an area of concern in the left breast and an ultrasound core biopsy was recommended. This was performed on 03-12-2024. Pathology was a benign hemangioma. This was personally reviewed and interpreted with Dr. Guadarrama from radiology. The patient does not feel anything of concern in either breast. She tolerated the procedure without any difficulty. Family history: Negative Hormonal history: Menarche: 11 1 miscarriage, breast feed no, first child born at 17 Menopause: late 50's BCP:< 1 year hormones: < 1 year Surgical history: 1. Varicose veins 2. Superficial nodule removed from scalp 3. two liver biopsies in past Medical History: 1. 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 a fib takes Coumadin 3. recommended to have a cardiac ultrasound Social History: smoke: none alcohol: none drugs: none - Constitutional Constitutional: Denies chills, Denies fever - EENT Eyes: denies blurred vision, denies pain Ears, nose, mouth and throat: Denies headache, Denies sore throat - Breasts Breasts: bilateral: as per HPI - Cardiovascular Comment: palpitations Cardiovascular: Denies chest pain, Denies shortness of breath - Respiratory Respiratory: Denies cough - Gastrointestinal Gastrointestinal: Denies abdominal pain, Denies diarrhea, Denies nausea, Denies vomiting - Genitourinary (Female) Genitourinary: Denies dysuria, Denies hematuria - Menstruation Menstruation: Reports postmenopausal - Musculoskeletal Musculoskeletal: Denies myalgias - Integumentary Integumentary: Denies pruritus, Denies rash - Neurological Neurological: Denies numbness, Denies weakness - Psychiatric Psychiatric: Denies anxiety, Denies depression - Endocrine Endocrine: Reports weight change, Denies fatigue - Hematologic/Lymphatic Comment: Patient takes Coumadin - Allergic/Immunologic Allergic/Immunologic: Reports as per HPI Objective - Constitutional General appearance: Present: cooperative - EENT Eyes: Present: EOMI ENT: Present: hearing grossly normal - Neck Neck: Present: normal ROM - Respiratory Respiratory: bilateral: CTA - Cardiovascular Heart sounds: normal: S1, S2 - Integumentary Integumentary: Present: normal turgor - Musculoskeletal Musculoskeletal: Present: gait normal - Psychiatric Psychiatric: Present: A&O x's 3, appropriate affect, intact judgment & insight - Additional findings Additional findings: Breast Exam: BRA: 40DD Inspection: Bilateral grade 3 ptosis Palpation: Right breast: Multi-positional exam fibrocystic changes no dominant masses or nodules of concern; Right axilla: No adenopathy of concern Left breast: multi-positional exam fibrocystic changes no dominant masses or nodules of concern, biopsy site left breast clean and dry Left axilla: No adenopathy of concern Assessment and Plan Assessment: Impression: Fibrocystic breast changes core biopsy left breast benign specific 03-12-24 Plan: left breast mammogram in 6 months right breast mammogram now, and follow up Cc: Dr. Restrepo
[2024-03-28 14:01] VITALS: BP 149/80; PULSE 59; RESP 16; TEMP 98.2
== END ==
LOC: WWCWWP 11:59
PROVIDERS: ATTEND Surgery
DX: N60.11 Diffuse cystic mastopathy of right breast (principal); N60.12 Diffuse cystic mastopathy of left breast; Z88.0 Allergy status to penicillin

== ENCOUNTER → 2024-04-03 | Outpatient (CLI) | payer MEDICARE, BC ==
[2024-04-03 15:00] LABS: Calcium 9.3 mg/dL (8.7-10.3); Carbon Dioxide 26.6 mmol/L (21.6-31.8); Chloride 100 mmol/L (96-109); Glucose 83 mg/dL (70-110); Potassium 4.2 mmol/L (3.5-5.5); Sodium 138 mmol/L (135-145)
== END ==
LOC: LABWHC1 09:19
PROVIDERS: ATTEND Internal Medicine Interventional Cardiology
DX: I10 Essential (primary) hypertension (principal); I36.1 Nonrheumatic tricuspid (valve) insufficiency; I48.20 Chronic atrial fibrillation, unspecified; E78.2 Mixed hyperlipidemia
CPT/HCPCS: 36415; 80048

== ENCOUNTER → 2024-04-15 | Outpatient (CLI) | payer MEDICARE, BC ==
--- NOTE | 2024-04-15 14:19 | MM ---
Reason for Exam: Follow-up at short interval from prior study. Last mammogram was performed 1 year(s) and 1 month(s) ago. Patient History: Menarche at age 11. First Full-Term at age 16. Postmenopausal. 03/12/2024, Benign US biopsy breast VAD LT on the left side. 04/30/2020, Benign Core Biopsy on the left side. Risk Values: Ritu 5 year model risk: 1.8%. NCI Lifetime model risk: 2.8%. Prior Study Comparison: 04/13/2023 Bilateral MG diagnostic mammo w CAD GUNNAR, [facility]. 03/04/2024 Left MG 3D diag mammo w/cad LT, [facility]. 03/12/2024 Left MG diagnostic mammo LT wo CAD., [facility]. Tissue Density: Right: There are scattered areas of fibroglandular density. Findings: Analyzed By CAD. No significant change from prior exams. Overall Assessment: Negative, BI-RAD 1 Management: Screening Mammogram of both breasts in 1 year. Results were given to the patient verbally at the time of exam. Patient should continue monthly self-breast exams. A clinical breast exam by your physician is recommended on an annual basis. This exam should not preclude additional follow-up of suspicious palpable abnormalities. Note on Ritu scores and lifetime risk: 1. A Ritu score greater than 3% is considered moderate risk. If this is the case, consider specialist referral to assess eligibility for a risk reducing agent. 2. If overall lifetime risk for the development of breast cancer is 20% or higher, the patient may qualify for future screening with alternating mammogram and breast MRI. Electronically signed and approved by: Tim Luna M.D. Radiologist
== END | disposition home or self-care (01) ==
LOC: RADMAMWWP 13:27
PROVIDERS: ATTEND Surgery
DX: R92.321 Mammographic fibroglandular density, right breast (principal); R92.8 Other abnormal and inconclusive findings on diagnostic imaging of breast; Z78.0 Asymptomatic menopausal state
CPT/HCPCS: 77065; G0279; 77061

== ENCOUNTER → 2025-04-02 | Outpatient (CLI) | payer MEDICARE, BC ==
--- NOTE | 2025-04-02 16:39 | BD ---
EXAMINATION TYPE: Axial Bone Density DATE OF EXAM: 04/02/2025 CLINICAL HISTORY: 79 years old Female. 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 History of Fracture in Adulthood: no Secondary Osteoporosis: 1. Type 1 Diabetes: no 2. Hyperthyroidism: no 3. Menopause before 45: no 4. Malnutrition: no 5. Chronic liver disease: hepatitis c Rheumatoid Arthritis: no Current Tobacco Use: no RISK FACTORS HISTORY OF: Surgery to Spine/Hip(right/left)/Wrist (right/left): no MEDICATIONS: Thyroid Medications: none Osteoporosis Medications: none EXAM MEASUREMENTS: Bone mineral densitometry was performed using the [employer] System. Bone mineral density as measured about the Lumbar spine is: ----- L1-L4(G/cm2): 1.008 T Score Values are as follows: ----- L1: -1.1 ----- L2: -2.0 ----- L3: -1.7 ----- L4: -1.2 ----- L1-L4: -1.4 Z Score Values are as follows: ----- L1: 0.1 ----- L2: -0.7 ----- L3: -0.4 ----- L4: 0.1 ----- L1-L4: -0.2 baseline Bone mineral density about the R hip (g/cm2): 0.815 Bone mineral density about the L hip (g/cm2): 0.834 T Score values are as follows: -----R Neck: -1.6 -----L Neck: -1.5 -----R Total: -0.8 -----L Total: -0.6 Z Score values are as follows: -----R Neck: 0.2 -----L Neck: 0.4 -----R Total: 0.8 -----L Total: 1.0 baseline FRAX%s: The graph provided illustrates a 13.3 % chance for a major osteoporotic fx and a 3.5 % chance for the hips probability for fx in 10 years time. IMPRESSION: Osteopenia (T Score between -2.5 and -1). There is slightly increased risk of fracture and the patient may be considered for treatment. Re-Screen 2-5 years. NOTE: T-SCORE=SD OF THE YOUNG ADULT MEAN. [facility], , 04/02/2025 4:36 PM
== END | disposition home or self-care (01) ==
LOC: RADBDWWP 14:12
PROVIDERS: ATTEND Family Medicine
DX: M81.0 Age-related osteoporosis without current pathological fracture (principal); M85.89 Other specified disorders of bone density and structure, multiple sites
CPT/HCPCS: 77080

== ENCOUNTER → 2025-04-16 | Outpatient (CLI) | payer MEDICARE, BC ==
--- NOTE | 2025-04-16 15:10 | MM ---
Reason for Exam: Screening (asymptomatic). Last mammogram was performed 2 year(s) and 1 month(s) ago. Patient History: Menarche at age 11. First Full-Term at age 16. Postmenopausal. 03/12/2024, Benign US biopsy breast VAD LT on the left side. 04/30/2020, Benign Core Biopsy on the left side. Risk Values: Ritu 5 year model risk: 1.8%. NCI Lifetime model risk: 2.5%. Prior Study Comparison: 03/04/2024 Left MG 3D diag mammo w/cad LT, [facility]. 03/12/2024 Left MG diagnostic mammo LT wo CAD., [facility]. 04/15/2024 Right MG 3D diag mammo w/cad RT, [facility]. Tissue Density: There are scattered areas of fibroglandular density. Findings: Analyzed By CAD. Unchanged focal asymmetries on the left. Chronic nodularity anterior upper outer quadrant left breast. Benign vascular calcifications. There is no suspicious group of microcalcifications or new suspicious mass in either breast. Overall Assessment: Benign, BI-RAD 2 Management: Screening Mammogram of both breasts in 1 year. Patient should continue monthly self-breast exams. A clinical breast exam by your physician is recommended on an annual basis. This exam should not preclude additional follow-up of suspicious palpable abnormalities. Note on Ritu scores and lifetime risk: 1. A Ritu score greater than 3% is considered moderate risk. If this is the case, consider specialist referral to assess eligibility for a risk reducing agent. 2. If overall lifetime risk for the development of breast cancer is 20% or higher, the patient may qualify for future screening with alternating mammogram and breast MRI. [facility], , 04/16/2025 3:07 PM. Electronically signed and approved by: Tim Luna M.D. Radiologist
== END | disposition home or self-care (01) ==
LOC: RADMAMWWP 09:38
PROVIDERS: ATTEND Surgery
DX: Z12.31 Encounter for screening mammogram for malignant neoplasm of breast (principal); R92.323 Mammographic fibroglandular density, bilateral breasts; Z78.0 Asymptomatic menopausal state
CPT/HCPCS: 77063; 77067